=== PATIENT | male | born 1985 | race Caucasian/White ===

== ENCOUNTER 2018-03-03 14:17 | Emergency (ER) | payer MEDICARE, MEDICAID ==
[~2018-03-03] VITALS: Ht 182.9 cm; Wt 77.0 kg
[~2018-03-03 14:17] MED LIST: DIPH25CA85 PO; LORA-192 PO; LORA10TA7 PO; RISP1TAB89 PO
[2018-03-03 15:21] LABS: BASOPHILS % (AUTO) 0.4 % (0.0-2.0); EOSINOPHILS % (AUTO) 3.4 % (1.0-6.0); HEMATOCRIT 29.3 % (41-53); HEMOGLOBIN 9.4 g/dL (13.5-17.5); LYMPHOCYTES # (AUTO) 0.6 K/uL (1.0-4.8); MEAN CORPUSCULAR HEMOGLOBIN 20.5 pg (26.0-34.0); MEAN CORPUSCULAR VOLUME 64 fL (80-100); MONOCYTES # (AUTO) 0.4 K/uL (0.1-1.0); MONOCYTES % (AUTO) 8.9 % (2.0-9.0); NEUTROPHILS # (AUTO) 3.6 K/uL (1.8-7.7); NEUTROPHILS % (AUTO) 75.3 % (40.0-70.0); PLATELET COUNT (AUTO) 198 K/uL (150-450); RED BLOOD CELL COUNT(AUTO) 4.59 MIL/uL (4.50-5.90); RED CELL DISTRIBUTION WIDTH 17.3 % (11.5-14.5)
[2018-03-03] MEDS ORDERED: LORazepam 2 MG/ML VIAL IM ONE (15:30)
[2018-03-03] MEDS ORDERED: DiphenhydrAMINE HCL 50 MG/ML VIAL IM ONE (15:30)
[2018-03-03] MEDS ORDERED: BUPIVACAINE HCL/PF 0.25% 10 ML VIAL INJ ONE (16:00)
[2018-03-03 16:02] LABS: ANION GAP 6 mmol/L (8-16); CALCIUM, TOTAL 8.1 mg/dL (8.8-10.5); CARBON DIOXIDE 29 mmol/L (22-29); CHLORIDE 104 mmol/L (98-107); CREATININE 0.66 mg/dL (0.60-1.30); GLOMERULAR FILTR. RATE CALC > 60 mL/min (>60); GLUCOSE,RANDOM 88 mg/dL (70-110); POTASSIUM 3.5 mmol/L (3.5-5.1); SODIUM SERUM 139 mmol/L (136-145); UREA NITROGEN, BLOOD 8 mg/dL (7-18)
[2018-03-03 16:07] LABS: ALANINE AMINOTRANSFERASE 37 U/L (12-78); ALBUMIN 3.1 g/dL (3.4-5.0); ALKALINE PHOSPHATASE 79 U/L (46-116); ASPARTATE AMINOTRANSFERASE 29 U/L (15-37); BILIRUBIN,TOTAL 0.7 mg/dL (0.1-1.0); LIPASE 123 U/L (73-393); TOTAL PROTEIN, SERUM 6.5 g/dL (6.4-8.2)
[2018-03-03] MEDS ORDERED: SODIUM CHLORIDE 0.9% 2,000 ML IV ONE (16:15)
[2018-03-03] MEDS ORDERED: ONDANSETRON HCL 4 MG/2 ML VIAL IVP ONE (16:15)
[2018-03-03 17:54] VITALS: BP 124/68
== END 2018-03-03 18:43 | disposition home or self-care (01) ==
LOC: EDUNIT# 14:17 → EMS 14:19
DX: F41.9 Anxiety disorder, unspecified (principal); R11.2 Nausea with vomiting, unspecified; D64.9 Anemia, unspecified; F15.90 Other stimulant use, unspecified, uncomplicated; F17.210 Nicotine dependence, cigarettes, uncomplicated
CPT/HCPCS: 36415; 80053; 83690; 85025; 96372; 99284; 99406; G0480; J1200; J2060

== ENCOUNTER 2018-07-23 18:19 | Emergency (ER) | payer MEDICAID, MEDICARE ==
[~2018-07-23] VITALS: Ht 188 cm; Wt 81.8 kg
[2018-07-23 18:49] VITALS: BP 106/57
[2018-07-23] MEDS ORDERED: DiphenhydrAMINE HCL 50 MG/ML VIAL IM ONE (19:00)
[2018-07-23 19:24] LABS: ANION GAP 6 mmol/L (8-16); CALCIUM, TOTAL 8.1 mg/dL (8.8-10.5); CARBON DIOXIDE 27 mmol/L (22-29); CHLORIDE 106 mmol/L (98-107); CREATININE 0.72 mg/dL (0.60-1.30); GLOMERULAR FILTR. RATE CALC > 60 mL/min (>60); GLUCOSE,RANDOM 118 mg/dL (70-110); POTASSIUM 3.8 mmol/L (3.5-5.1); SODIUM SERUM 139 mmol/L (136-145); UREA NITROGEN, BLOOD 14 mg/dL (7-18)
[2018-07-23 19:30] LABS: ALANINE AMINOTRANSFERASE 20 U/L (12-78); ALBUMIN 3.3 g/dL (3.4-5.0); ALKALINE PHOSPHATASE 89 U/L (46-116); ASPARTATE AMINOTRANSFERASE 15 U/L (15-37); BILIRUBIN,TOTAL 0.6 mg/dL (0.1-1.0); TOTAL PROTEIN, SERUM 6.1 g/dL (6.4-8.2)
[2018-07-23 19:48] LABS: BASOPHILS % (AUTO) 0.7 % (0.0-2.0); EOSINOPHILS % (AUTO) 2.6 % (1.0-6.0); HEMATOCRIT 30.8 % (41-53); HEMOGLOBIN 9.9 g/dL (13.5-17.5); LYMPHOCYTES # (AUTO) 1.3 K/uL (1.0-4.8); MEAN CORPUSCULAR VOLUME 63 fL (80-100); MONOCYTES # (AUTO) 0.4 K/uL (0.1-1.0); MONOCYTES % (AUTO) 8.7 % (2.0-9.0); NEUTROPHILS # (AUTO) 2.5 K/uL (1.8-7.7); PLATELET COUNT (AUTO) 196 K/uL (150-450); RED BLOOD CELL COUNT(AUTO) 4.92 MIL/uL (4.50-5.90); RED CELL DISTRIBUTION WIDTH 16.2 % (11.5-14.5)
== END 2018-07-24 00:31 | disposition home or self-care (01) ==
LOC: EMS 18:19
DX: F20.0 Paranoid schizophrenia (principal); R06.00 Dyspnea, unspecified; F41.9 Anxiety disorder, unspecified; F12.90 Cannabis use, unspecified, uncomplicated; F15.90 Other stimulant use, unspecified, uncomplicated; F17.210 Nicotine dependence, cigarettes, uncomplicated; Z79.899 Other long term (current) drug therapy; Z91.14 Patient's other noncompliance with medication regimen
CPT/HCPCS: 36415; 80053; 85025; 96372; 99284; G0480; J1200

== ENCOUNTER 2019-08-23 08:00 | Emergency (ER) | payer MEDICARE, MEDICAID ==
[~2019-08-23] VITALS: Ht 185.4 cm; Wt 86.4 kg
[2019-08-23 09:22] VITALS: BP 127/77
== END 2019-08-23 09:43 | disposition home or self-care (01) ==
LOC: EDUNIT# 08:00 → EMS 08:07
DX: J02.9 Acute pharyngitis, unspecified (principal); R22.0 Localized swelling, mass and lump, head; F20.9 Schizophrenia, unspecified; F17.210 Nicotine dependence, cigarettes, uncomplicated; F12.90 Cannabis use, unspecified, uncomplicated; F19.90 Other psychoactive substance use, unspecified, uncomplicated
CPT/HCPCS: 99406

== ENCOUNTER 2023-03-08 17:54 | Emergency (ER) | payer MEDICAID, MEDICARE ==
[~2023-03-08] VITALS: Ht 182.9 cm; Wt 70.5 kg
[2023-03-08] MEDS ORDERED: DiphenhydrAMINE HCL 50 MG/ML VIAL IM ONE (20:00)
[2023-03-08 21:35] VITALS: BP 142/72; PULSE 68; RESP 18; TEMP 98.8
== END 2023-03-08 21:40 | disposition home or self-care (01) ==
LOC: EMS 18:38
DX: T78.40XA Allergy, unspecified, initial encounter (principal); F25.9 Schizoaffective disorder, unspecified; F17.210 Nicotine dependence, cigarettes, uncomplicated; F12.90 Cannabis use, unspecified, uncomplicated; F15.90 Other stimulant use, unspecified, uncomplicated; Z98.890 Other specified postprocedural states; X58.XXXA Exposure to other specified factors, initial encounter
CPT/HCPCS: 99283; 96372; J1200

== ENCOUNTER 2024-01-01 16:51 | Emergency (ER) | payer MEDICARE, OTHER ==
[~2024-01-01] VITALS: Ht 180.3 cm; Wt 86.7 kg
[2024-01-01 16:59] VITALS: BP 107/66; PULSE 104; RESP 20; O2SAT 99
== END 2024-01-01 19:13 | disposition home or self-care (01) ==
LOC: EMS 16:51
DX: T78.40XA Allergy, unspecified, initial encounter (principal); R06.02 Shortness of breath; F25.9 Schizoaffective disorder, unspecified; F12.90 Cannabis use, unspecified, uncomplicated; Z88.8 Allergy status to other drugs, medicaments and biological substances; Z98.890 Other specified postprocedural states; X58.XXXA Exposure to other specified factors, initial encounter
CPT/HCPCS: 99283; Z7502